=== PATIENT | male | born 1970 | race African-American/Black ===

== ENCOUNTER 2017-04-09 10:55 | Emergency (ER) | payer OTHER ==
[~2017-04-09 10:55] MED LIST: AL-MAG HYDROX-S30 M1 PO; AMLODIPINE BESY10 MG PO; ANIMAL SHAPES1 EAC2 PO; ATENOLOL25 MG PO; B-1100 MG PO; BENTYL10 M1 PO; BENZTROPINE MESY1 MG PO; CARAFATE PO; CARAFATE1 G PO; CARDURA2 MG PO; CATAPRES0.1 M1 PO; CATAPRES0.1 MG PO; CEPACOL SORE T1 EAC3 PO; CLONIDINE HCL0.1 MG PO; COGENTIN1 M1 PO; COGENTIN1 MG PO; COLCHICINE0.6 M1 PO; COLCRYS0.6 M2 PO; DICYCLOMINE HCL10 MG PO; FOLIC ACID1 MG PO; GENTAMICIN SULFA5 ML OU; HALOPERIDOL2 MG PO; HYDROCHLOROTHIA25 MG PO; HYDROCODONE-APA1 T61 PO; HYDROCODONE/APA1 T15 PO; INDOCIN50 MG PO; INDOMETHACIN25 MG PO; K-DUR20 ME1 PO; K-DUR20 ME2 PO; KLOR-CON PO; LIBRIUM PO; LIBRIUM25 M1 PO; LIBRIUM25 MG PO; LISINOPRIL PO; LOPRESSOR PO; MAALOX SUSPENS355 ML PO; MAG-OX 400400 MG PO; MAGNESIUM400 M1 PO; MAGNESIUM400 MG PO; MEDROL DOSEPAK4 MG PO; METOPROLOL TAR25 MG PO; METOPROLOL TART25 MG PO; MOBIC15 MG PO; MULTI VITAMIN1 EACH PO; MULTI-VITAMIN1 EAC1 PO; MULTI-VITAMIN1 TAB PO; NORVASC10 MG PO; OMEPRAZOLE20 M2 PO; PANTOPRAZOLE SO40 MG PO; PHENERGAN25 MG PO; PRILOSEC20 M1 PO; PRILOSEC20 MG PO; PRINIVIL40 MG PO; PROTONIX PO; PROTONIX20 MG PO; REVIA50 MG PO; RISPERDAL1 M1 PO; RISPERIDONE1 MG PO; RISPERIDONE2 MG PO; SENOKOT S1 TA1 PO; SERTRALINE HCL100 M1 PO; SERTRALINE HCL50 M1 PO; TYLENOL325 M1 PO; VITAMIN B-1100 M1 PO; VITAMIN D2000 UNIT PO; ZESTRIL40 MG PO; ZOFRAN ODT4 MG PO; ZYLOPRIM100 MG PO
[2017-04-09 12:06] LABS: BASOPHIL# 0.1 X10e3 (0-0.3); BASOPHIL% 0.5 % (0-2.5); DIFF IND YES; HEMATOCRIT 46.1 % (38.0-50.0); HEMOGLOBIN 14.7 gm/dL (13.0-16.0); LYMPHOCYTE# 2.5 X10e3 (1.0-3.5); LYMPHOCYTE% 13.5 % (17.0-45.0); MEAN CELL VOLUME 77.8 FL (83-96); MEAN CORPUSCULAR HEMOGLOBIN 24.8 PG (28-34); MEAN CORPUSCULAR HGB CONC 31.8 g/dL (30-36); MEAN PLATELET VOLUME 9.7 FL (6.5-11.5); MONOCYTE# 1.1 X10e3 (0-1.0); MONOCYTE% 5.7 % (3.0-12.0); NEUTROPHIL% 80.3 % (40-75); PLATELET COUNT 102 X10e3 (140-420); RED BLOOD COUNT 5.92 X10e (3.90-5.60); RED CELL DISTRIBUTION WIDTH 15.3 % (11.0-15.5); WHITE BLOOD COUNT 18.7 X10e3 (4.0-10.5)
[2017-04-09 12:17] LABS: ALBUMIN SERUM 5.6 g/dL (3.5-5.0); ALCOHOL BLOOD <5 mg/dL (0); ALKALINE PHOSPHATASE 75 U/L (32-92); ALT (SGPT) 63 U/L (10-40); AST (SGOT) 126 U/L (10-42); BILIRUBIN, DIRECT 0.5 mg/dL (0.0-0.2); BILIRUBIN,INDIRECT 2.8 mg/dL (0.0-0.9); BILIRUBIN,TOTAL 3.3 mg/dL (0.2-2.0); BLOOD UREA NITROGEN 45 mg/dL (9-23); BUN/CREATININE RATIO 26.47; CALCIUM SERUM 9.5 mg/dL (8.4-10.2); CARBON DIOXIDE 23 mmol/L (22-31); CHLORIDE 94 mmol/L (100-111); CREATININE SERUM 1.7 mg/dL (0.6-1.4); GLOM FILT RATE Estimated 54.5 mL/min (>60); GLUCOSE FASTING 142 mg/dL (70-110); POTASSIUM 3.5 mmol/L (3.5-5.1); PROTEIN TOTAL SERUM 8.6 g/dL (6.0-8.3); SODIUM 134 mmol/L (135-145)
[2017-04-09 12:39] LABS: AMPHETAMINE NEG (NEG); BARBITURATES NEG (NEG); BENZODIAZEPINES NEG (NEG); COCAINE NEG (NEG); MARIJUANA NEG (NEG); OPIATES NEG (NEG); TRICYCLIC ANTIDEPRESSANTS NEG (NEG); U METHADONE NEG (NEG)
[2017-04-09 13:08] LABS: ANISOCYTOSIS SL; PLATELET ESTIMATE DECREASED (NORMAL)
[2017-04-09 13:14] LABS: PAPPENHEIMER BODIES PRESENT
== END 2017-04-09 13:58 | disposition home or self-care (01) ==
LOC: CED 10:55
PROVIDERS: Emergency Medicine
DX: F43.12 Post-traumatic stress disorder, chronic (principal); F10.239 Alcohol dependence with withdrawal, unspecified; I10 Essential (primary) hypertension; Z79.899 Other long term (current) drug therapy
CPT/HCPCS: 36415; 80048; 80076; 80307; 85025; 99285; G0480

== ENCOUNTER 2017-04-25 15:07 | Inpatient (IN) | payer OTHER ==
[~2017-04-25] VITALS: Ht 175.3 cm; Wt 103.0 kg
--- NOTE | ~2017-04-25 | CO ---
Unit #: [id number] #: [id number] Patient: KADE QUINTANA JR. [id number] [address] [address] [id number] I MR#: [id number] NAME: KADE QUINTANA JR. ROOM: [facility] Age: 46 Sex: M Admission Date: 04/25/2017 : 1970 Attending Physician: Alayna Unger M.D. Primary Care Physician: Daja Brunson M.D. Consultation Date: 04/26/2017 CONSULTATION REPORT REASON FOR CONSULT ICU management. CHIEF COMPLAINT Withdrawal. HISTORY OF PRESENT ILLNESS This is a pleasant, 46-year-old -[place] male with past medical history significant for binge drinking and alcohol withdrawal, who presented to the emergency room for evaluation of alcohol withdrawal symptoms. The patient stated that he had an episode of binge drinking and he attempted to quit many days ago. The patient had some symptoms o alcohol withdrawal as he is aware of them from previous experience. He was not feeling well and was feeling nauseated but he did not vomit. Also, he was feeling some chest discomfort and his heart was racing. Upon presentation to the ER, the patient needed IV Ativan, however, he did not receive any dose since midnight. He is currently feeling better but he is still nauseated. He tolerated his clear liquids fine this morning. PAST MEDICAL HISTORY 1. Hypertension. 2. PTSD. 3. Depression. 4. Alcohol abuse. 5. GERD. 6. Gastrointestinal bleeding with ulcerative esophagitis. 7. Thrombocytopenia. 8. Liver disease. PAST SURGICAL HISTORY 1. Right knee surgery. 2. Right ankle surgery. FAMILY HISTORY Hypertension. ALLERGIES No known drug allergy. HOME MEDICATION 1. Allopurinol. 2. Risperdal. Unit #: [id number] #: [id number] Patient: KADE QUINTANA JR. 3. Folic acid. 4. Catapres. 5. Sertraline. 6. Zofran. 7. Thiamine. 8. Haldol. 9. Metoprolol. REVIEW OF SYSTEMS A 12-point review of systems was obtained and was negative except for what was mentioned in the HPI. PHYSICAL EXAMINATION GENERAL APPEARANCE: The patient currently is calm and following commands. No acute distress. VITAL SIGNS: Temperature 98.4. Respiratory rate 16. O2 saturation 96 on room air. HEENT: Head: Atraumatic, normocephalic. PERRLA. EOMI. NECK: Supple. No JVD. No lymphadenopathy. CHEST: Clear to auscultation bilaterally. HEART: S1, S2. No murmur, gallops or rubs. ABDOMEN: Soft, nontender. Bowel sounds positive. No hepatosplenomegaly. EXTREMITIES: No edema or cyanosis. SKIN: No rashes. CENTRAL NERVOUS SYSTEM: Awake, alert, oriented x3. No focal motor/sensory deficits. DIAGNOSTIC STUDIES LABORATORY: Creatinine 1.0. CO2 28. Calcium 8.6. WBC count 8.6, hemoglobin 11.0. ASSESSMENT 1. Alcohol withdrawal. 2. Hypertension. 3. Anemia. 4. Thrombocytopenia. 5. Morbid obesity. PLAN 1. We will continue patient on CIWA protocol. 2. IV hydration but may discontinue as soon as he tolerates solid food. 3. He is currently on clear liquids but will advance as tolerated. 4. We will put parameters on his blood pressure as his blood pressure is borderline right now. 5. DVT prophylaxis but we will hold if platelet level is less than 40,000. 6. Out of bed to chair and ambulation. 7. I would like to thank Dr. Guajardo for allowing me to be part of this patient's care. Dictated by... Pam Torres TD: 04/26/2017 13:01 JOB #: [id number] Unit #: [id number] #: [id number] Patient: KADE QUINTANA JR. CONSULTATION REPORT Page 1 of 1 X GONZALES GOLDEN MD CONSULTATION REPORT
--- NOTE | ~2017-04-25 | DS ---
Unit #: [id number] #: [id number] Patient: KADE QUINTANA JR. [id number] [address] [address] [id number] I MR#: [id number] NAME: KADE QUINTANA JR. ROOM: [facility] Age: 46 Sex: M Admission Date: 04/25/2017 : 1970 Discharge Date: 04/27/2017 Attending Physician: Alayna Unger M.D. Primary Care Physician: Daja Brunson M.D. DISCHARGE SUMMARY PRIMARY CARE PHYSICIAN [facility]. PRINCIPAL DIAGNOSES 1. Acute alcohol withdrawal without seizure. 2. Hypokalemia. 3. Metabolic acidosis likely a combination of alcoholic ketosis and starvation ketosis. 4. Chronic thrombocytopenia secondary to alcohol abuse, discharge platelet count 67,000. 5. Hypertension. 6. Posttraumatic stress disorder. 7. Depression. 8. Chronic alcohol abuse. 9. History of ulcerative esophagitis. 10. History of alcohol-induced liver disease, currently stable. 11. Reactive leukocytosis. 12. Gout. M[employer] Dr. Veras, Pulmonology. PROCEDURE Chest x-ray on April 25, 2017, with no acute findings. CLINICAL HISTORY AND HOSPITAL COURSE Mr. Quintana is a nice 46-year-old male who presented to the emergency department in alcohol withdrawal. He was attempting to quit drinking on his own but felt quite tremulous and subsequently presented to the ER. Workup in the emergency department revealed a bicarbonate level of 16 with an anion gap of 25. His white blood cell count was also elevated at 17. Workup was otherwise unremarkable, and he was subsequently admitted. Patient was initially admitted to the ICU given concern for significant withdrawal. However, on scheduled Librium, he did not require any p.r.n. Ativan and has had minimal withdrawal symptoms. His tremulousness has resolved, and he has not had any tachycardia. He was subsequently transferred from the ICU to the regular medical floor. Today, patient is stable. He is tolerating diet, he has been up walking, and denies any symptoms of withdrawal. I am going to give him a short tapering dose of Librium as an outpatient. Unit #: [id number] #: [id number] Patient: LILIAN,KADE JULIUS JR. In regards to patient's leukocytosis, this resolved spontaneously without any infectious cause noted. No antibiotics given on discharge. Patient is otherwise again stable and will be discharged home. DISCHARGE CONDITION Stable. DISCHARGE STATUS Discharge to home. DISCHARGE MEDICATIONS 1. Magnesium oxide 400 mg p.o. daily. 2. Zoloft 100 mg daily. 3. Zofran oral disintegrating tablets 4 mg t.i.d. p.r.n. for nausea and vomiting. 4. Phenergan 25 mg p.o. q.4 hours p.r.n. for nausea. 5. Bentyl 10 mg p.o. t.i.d. p.r.n. for abdominal cramping. 6. Haldol 5 mg b.i.d. 7. Risperdal 3 mg at bedtime. 8. Librium 25 mg p.o. b.i.d. for 1 day, then 25 mg daily for 1 day, then discontinue. 9. Metoprolol tartrate 25 mg b.i.d. 10. Clonidine 0.1 mg p.o. t.i.d. 11. Allopurinol 200 mg daily. 12. Daily multivitamin. 13. Protonix 40 mg b.i.d. 14. Folic acid 1 mg daily. 15. Thiamine 100 mg daily. DISCHARGE INSTRUCTIONS 1. Patient is instructed to follow a heart-healthy diet. 2. He can increase his activity as tolerated. 3. Refrain from any further alcohol use. FOLLOWUP Patient will follow up with his primary care physician at [facility] early next week. Dictated by... Alayna Unger M.D. LAVERNE/diane TD: 04/30/2017 14:47 JOB #: [id number] DISCHARGE SUMMARY Page 1 of 1 X Alayna Unger MD X DISCHARGE SUMMARY
--- NOTE | ~2017-04-25 | EKG ---
PATIENT: KADE QUINTANA UNIT #: [id number] Ventricular Rate: 118 BPM Atrial Rate: 118 BPM P-R Interval: 216 ms QRS Duration: 82 ms Q-T Interval: 254 ms QTC Calculation(Bezet): 356 ms P [place]: 117 degrees Calculated R [place]: 32 degrees Calculated T [place]: 2 degrees Diagnosis Line: Sinus tachycardia with 1st degree A-V block Diagnosis Line: Nonspecific T wave abnormality Diagnosis Line: Abnormal ECG Diagnosis Line: No previous ECGs available Diagnosis Line: Confirmed by CAITLYN GRAHAM MD ([id number]) on Diagnosis Line: 04/26/2017 9:04:19 AM INTERPRETING MD: SANTOS BAKER
--- NOTE | ~2017-04-25 | CR72 ---
[facility] A Service of [facility] RADIOLOGY TEXT RESULTS PATIENT: KADE QUINTANA JR. LOCATION: [address] : [birth year] UNIT #: [id number] AGE: [address]: Talat Guajardo MD SEX: M ORDER DR: [id number] [facility] [address] [facility] [place], [place] [address] [id number] MR#: [id number] Acc #: [id number] NAME: KADE QUINTANA JR. : 1970 SEX: M STUDY DATE/TIME: 04/25/2017 16:23 UNIT: [facility] ROOM: [id number] STUDY DESCRIPTION: CR Chest Single View Portable Attending Physician: Talat Guajardo M.D. Ordering Physician: Pilo Salinas M.D. Primary Care Physician: Daja Brunson M.D. MEDICAL IMAGING REPORT This report is preliminary unless electronic signature is present EXAM Portable chest INDICATIONS Shortness of breath chest pain and vomiting for 3 days COMPARISON 11/21/2016 FINDINGS The lungs are well expanded and clear. The heart size is normal. Visualized osseous structures are unremarkable. IMPRESSION No active disease Dictated by... Arun Richmond M.D. THIS IS AN ELECTRONICALLY VERIFIED REPORT Arun Richmond M.D. at 04/26/2017 7:12 AM JUAN/catalina TD: 04/25/2017 19:20 JOB #: [id number] MEDICAL IMAGING REPORT Page 1 of 1 COPY
--- NOTE | ~2017-04-25 | HP ---
Unit #: [id number] #: [id number] Patient: KADE QUINTANA JR. [id number] [address] [place], [place] [address] [id number] I MR#: [id number] NAME: KADE QUINTANA JR. ROOM: [facility] Age: 46 Sex: M Admission Date: 04/25/2017 : 1970 Attending Physician: Talat Guajardo M.D. Primary Care Physician: Daja Brunson M.D. HISTORY AND PHYSICAL CHIEF COMPLAINT Alcohol withdrawal HISTORY OF PRESENT ILLNESS The patient is a 46-year-old male with history of binge drinking and alcohol withdrawal, presents to [facility] Emergency Department for the same. He states that he had an episode of binge drinking and attempted to quit three days ago. He went three days with no alcohol and suddenly began to feel ill. He had a drink prior to coming to the hospital. In the emergency department he is noted to be nauseas and with vomiting. He states that he feels he is having palpitations, but is answering questions appropriately, denies any confusion and certainly does not appear confused during this interview. PAST MEDICAL HISTORY 1. Hypertension. 2. Posttraumatic stress disorder. 3. Depression. 4. Alcohol abuse. 5. History of gastroesophageal reflux disease. 6. Gastrointestinal bleed with ulcerative esophagitis. 7. Chronic thrombocytopenia secondary to alcohol abuse. 8. Alcohol induced liver disease. 9. Right knee surgery. 10. Right ankle surgery. HOME MEDICATIONS The patient takes 1. Multivitamin daily 2. Allopurinol 200 mg p.o. daily 3. Cetirizine 100 mg p.o. daily 4. Risperdal 3 mg daily 5. Folic acid daily 6. Catapres 0.2 mg p.o. every 8 hours 7. Sertraline 100 mg p.o. at bedtime 8. Zofran 4 mg p.o. t.i.d. 9. Thiamine 100 mg p.o. daily 10. Haldol 5 mg p.o. b.i.d. 11. Metoprolol tartrate 50 mg p.o. b.i.d. 12. Magnesium oxide 400 mg p.o. every 8 hours ALLERGIES No known drug allergies Unit #: [id number] #: [id number] Patient: KADE QUINTANA JR. REVIEW OF SYSTEMS Ten-point review of systems obtained and negative except as per history of present illness with the addition of anxiety and depression. PHYSICAL EXAMINATION VITAL SIGNS: Temperature 98.9, pulse 122, blood pressure 153/110. GENERAL: A 46-year-old male in no acute distress, appears stated age. HEENT: Pupils equally round. Extraocular movements are intact. Mucous membranes dry. NECK: Supple. No jugular venous distension. No lymphadenopathy. CARDIAC: Regular rate and rhythm. No murmurs, gallops or rubs. LUNGS: Clear to auscultation bilaterally. ABDOMEN: Nontender, nondistended. Positive bowel sounds. EXTREMITIES: No clubbing, cyanosis or edema. Warm and dry. PSYCHIATRIC: Alert and oriented x3. Affect is appropriate. NEUROLOGIC: Cranial nerves II through XII are intact grossly. The patient moves all extremities equal and with purpose. SKIN: No rash, bruise, or ulcer. MUSCULOSKELETAL: No muscle or joint pain. No muscle or joint swelling. DIAGNOSIS DATA Laboratory: Bicarbonate is 16, anion gap is 25. White count is 17, hemoglobin 12.8. Imaging: Chest x-ray shows no active disease. ASSESSEMENT AND PLAN 1. Alcohol withdrawal. The patient has been started on CIWA protocol and scheduled Librium. 2. Hypertension. Continue home medications. 3. Posttraumatic stress disorder and depression. Continue home medications. 4. Prophylaxis: The patient has been started on Lovenox. Dictated by Talat Guajardo M.D. CAM/bill TD: 04/25/2017 21:25 JOB #: [id number] HISTORY AND PHYSICAL Page 1 of 1 X Talat Guajardo MD HISTORY AND PHYSICAL
[2017-04-25 16:43] LABS: BASOPHIL# 0.1 X10e3 (0-0.3); BASOPHIL% 0.3 % (0-2.5); HEMATOCRIT 39.9 % (38.0-50.0); HEMOGLOBIN 12.8 gm/dL (13.0-16.0); LYMPHOCYTE# 1.8 X10e3 (1.0-3.5); LYMPHOCYTE% 10.4 % (17.0-45.0); MEAN CELL VOLUME 79.3 FL (83-96); MEAN CORPUSCULAR HEMOGLOBIN 25.5 PG (28-34); MEAN CORPUSCULAR HGB CONC 32.1 g/dL (30-36); MEAN PLATELET VOLUME 8.9 FL (6.5-11.5); MONOCYTE# 1.3 X10e3 (0-1.0); MONOCYTE% 7.4 % (3.0-12.0); NEUTROPHIL# 14.2 X10e3 (1.5-7.1); NEUTROPHIL% 81.9 % (40-75); PLATELET COUNT 149 X10e3 (140-420); RED BLOOD COUNT 5.03 X10e (3.90-5.60); RED CELL DISTRIBUTION WIDTH 16.3 % (11.0-15.5); WHITE BLOOD COUNT 17.3 X10e3 (4.0-10.5)
[2017-04-25 16:46] LABS: DIFF IND YES
[2017-04-25 16:53] LABS: INR 1.1; PARTIAL THROMBOPLASTIN TIME 26.9 SECONDS (23.5-31.3); PROTHROMBIN TIME (PATIENT) 11.4 SECONDS (10.0-11.7)
[2017-04-25 17:23] LABS: ANISOCYTOSIS MOD; MICROCYTOSIS SL; PLATELET ESTIMATE NORMAL (NORMAL); POIKILOCYTOSIS SL
[2017-04-25 17:39] LABS: POC - TROPONIN <0.05 ng/mL (<=0.05)
[2017-04-25 18:00] LABS: ALBUMIN SERUM 5.2 g/dL (3.5-5.0); BILIRUBIN, DIRECT 0.6 mg/dL (0.0-0.2); BILIRUBIN,INDIRECT 3.3 mg/dL (0.0-0.9); BILIRUBIN,TOTAL 3.9 mg/dL (0.2-2.0); CALCIUM SERUM 10.1 mg/dL (8.4-10.2); CREATININE SERUM 1.2 mg/dL (0.6-1.4); POTASSIUM 3.6 mmol/L (3.5-5.1); PROTEIN TOTAL SERUM 8.7 g/dL (6.0-8.3)
[2017-04-25 18:18] LABS: POC - CKMB 4.2 ng/mL (0.0-7.9); POC - TROPONIN <0.05 ng/mL (<=0.05)
[2017-04-26 05:25] LABS: BASOPHIL% 0.5 % (0-2.5); EOSINOPHIL% 0.2 % (0.0-7.0); HEMATOCRIT 34.8 % (38.0-50.0); LYMPHOCYTE# 2.5 X10e3 (1.0-3.5); LYMPHOCYTE% 28.9 % (17.0-45.0); MEAN CORPUSCULAR HEMOGLOBIN 25.6 PG (28-34); MEAN CORPUSCULAR HGB CONC 31.6 g/dL (30-36); MEAN PLATELET VOLUME 9.6 FL (6.5-11.5); MONOCYTE# 0.6 X10e3 (0-1.0); MONOCYTE% 7.5 % (3.0-12.0); NEUTROPHIL# 5.4 X10e3 (1.5-7.1); NEUTROPHIL% 62.9 % (40-75); RED CELL DISTRIBUTION WIDTH 17.1 % (11.0-15.5)
[2017-04-26 07:06] LABS: WHITE BLOOD COUNT 8.6 X10e3 (4.0-10.5)
[2017-04-26 07:11] LABS: DIFF IND YES; PLATELET COUNT 84 X10e3 (140-420)
[2017-04-26 07:13] LABS: CALCIUM SERUM 8.6 mg/dL (8.4-10.2); GLOM FILT RATE Estimated 103.4 mL/min (>60); POTASSIUM 3.3 mmol/L (3.5-5.1)
[2017-04-26 07:14] LABS: ANISOCYTOSIS SL; MICROCYTOSIS SL; PLATELET ESTIMATE DECREASED (NORMAL)
[2017-04-26 07:15] LABS: HYPOCHROMIA SL
[2017-04-26 07:17] LABS: STOMATOCYTE PRESENT
[2017-04-26 13:59] LABS: IRON SERUM 257 ug/dL (45-182); TOTAL IRON BINDING CAPACITY 298 ug/dL (252-460); TRANSFERRIN 213 mg/dL (180-329); TRANSFERRIN SATURATION 86 % (20-50)
[2017-04-26 20:45] LABS: URINE SOURCE CLEAN CATCH
[2017-04-26 20:51] LABS: URINE APPEARANCE CLEAR; URINE BILIRUBIN NEG (NEG); URINE BLOOD NEG (NEG); URINE COLOR YELLOW; URINE GLUCOSE NEG (NEG); URINE KETONE TRACE (NEG); URINE LEUKOCYTE ESTERASE NEG (NEG); URINE NITRATE NEG (NEG); URINE PH 5.5 (5-8); URINE PROTEIN NEG (NEG); URINE SPECIFIC GRAVITY 1.016 (1.003-1.035); URINE UROBILINOGEN 0.2 MG/DL (NEG)
[2017-04-27 05:59] LABS: BASOPHIL% 0.4 % (0-2.5); EOSINOPHIL# 0.1 X10e3 (0-0.7); EOSINOPHIL% 1.2 % (0.0-7.0); HEMATOCRIT 35.2 % (38.0-50.0); LYMPHOCYTE# 2.7 X10e3 (1.0-3.5); MEAN CELL VOLUME 81.8 FL (83-96); MEAN CORPUSCULAR HEMOGLOBIN 25.5 PG (28-34); MEAN CORPUSCULAR HGB CONC 31.2 g/dL (30-36); MEAN PLATELET VOLUME 9.3 FL (6.5-11.5); MONOCYTE# 0.5 X10e3 (0-1.0); MONOCYTE% 7.1 % (3.0-12.0); NEUTROPHIL# 3.6 X10e3 (1.5-7.1); NEUTROPHIL% 52.3 % (40-75); PLATELET COUNT 67 X10e3 (140-420); RED CELL DISTRIBUTION WIDTH 17.1 % (11.0-15.5); WHITE BLOOD COUNT 6.9 X10e3 (4.0-10.5)
[2017-04-27 06:03] LABS: DIFF IND NO
[2017-04-27 06:10] LABS: ALBUMIN SERUM 3.8 g/dL (3.5-5.0); BILIRUBIN,TOTAL 1.5 mg/dL (0.2-2.0); CALCIUM SERUM 8.9 mg/dL (8.4-10.2); CREATININE SERUM 0.8 mg/dL (0.6-1.4); GLOM FILT RATE Estimated 123.3 mL/min (>60); POTASSIUM 3.2 mmol/L (3.5-5.1); PROTEIN TOTAL SERUM 6.5 g/dL (6.0-8.3)
[2017-04-27] MEDS ORDERED: ZOFRAN PO (18:45)
[2017-04-27] MEDS ORDERED: LOPRESSOR PO (18:48)
[2017-04-27] MEDS ORDERED: LIBRIUM PO (18:51)
== END 2017-04-27 19:15 | disposition home or self-care (01) | DRG 897 ==
LOC: CED 15:07 → CEDOF 19:00 → CED 19:19 → CEDOF 19:19 → CICCU3 20:25 → CEDOF 20:25 → CICCU3 04-26 07:49 → C3A PCU 04-26 13:13
PROVIDERS: Emergency Medicine; Internal Medicine
DX: F10.231 Alcohol dependence with withdrawal delirium (principal); E87.2 Acidosis; D69.59 Other secondary thrombocytopenia; I10 Essential (primary) hypertension; F43.10 Post-traumatic stress disorder, unspecified; F32.9 Major depressive disorder, single episode, unspecified; K21.9 Gastro-esophageal reflux disease without esophagitis; E66.01 Morbid (severe) obesity due to excess calories; D64.9 Anemia, unspecified; E87.6 Hypokalemia; K70.9 Alcoholic liver disease, unspecified; D72.828 Other elevated white blood cell count; M10.9 Gout, unspecified; Z68.29 Body mass index [BMI] 29.0-29.9, adult
CPT/HCPCS: 36415; 71010; 80048; 80053; 80076; 81003; 82010; 82553; 82607; 83540; 83550; 83690; 84484; 85025; 85610; 85730; 93005; 96361; 96374; 96375; 99285; C9113; G0480; J1650; J2060; J2405; J3411; J7042

== ENCOUNTER 2017-05-28 13:51 | Emergency (ER) | payer OTHER ==
[~2017-05-28] VITALS: Ht 175.3 cm; Wt 99.8 kg
[~2017-05-28 13:51] MED LIST changes: +ZOFRAN PO
[2017-05-28 15:48] LABS: URINE SOURCE CLEAN CATCH
[2017-05-28 15:59] LABS: URINE APPEARANCE CLOUDY; URINE BLOOD NEG (NEG); URINE COLOR DK YELLOW; URINE GLUCOSE NEG (NEG); URINE KETONE 2+ (NEG); URINE LEUKOCYTE ESTERASE NEG (NEG); URINE NITRATE NEG (NEG); URINE PROTEIN 1+ (NEG); URINE SPECIFIC GRAVITY 1.029 (1.003-1.035)
[2017-05-28 16:02] LABS: URINE BACTERIA AUWI NEG (NEGATIVE); URINE SQUAMOUS EPITHELIAL CELL OCC /[HPF]; UWBCS1 AUWI 0-2 (0-5)
[2017-05-28 16:02] LABS: BASOPHIL# 0.1 X10e3 (0-0.3); BASOPHIL% 0.3 % (0-2.5); HEMATOCRIT 39.9 % (38.0-50.0); HEMOGLOBIN 13.2 gm/dL (13.0-16.0); LYMPHOCYTE# 0.9 X10e3 (1.0-3.5); LYMPHOCYTE% 5.5 % (17.0-45.0); MEAN CELL VOLUME 77.5 FL (83-96); MEAN CORPUSCULAR HEMOGLOBIN 25.6 PG (28-34); MEAN CORPUSCULAR HGB CONC 33.1 g/dL (30-36); MEAN PLATELET VOLUME 10.1 FL (6.5-11.5); MONOCYTE# 1.2 X10e3 (0-1.0); MONOCYTE% 7.1 % (3.0-12.0); NEUTROPHIL# 14.8 X10e3 (1.5-7.1); NEUTROPHIL% 87.1 % (40-75); RED BLOOD COUNT 5.16 X10e (3.90-5.60); RED CELL DISTRIBUTION WIDTH 17.1 % (11.0-15.5)
[2017-05-28 16:17] LABS: DIFF IND YES; PLATELET COUNT 64 X10e3 (140-420)
[2017-05-28 16:19] LABS: CULTURE INDICATED? NO; URINE BILIRUBIN NEG (NEG)
[2017-05-28 16:21] LABS: ALBUMIN SERUM 5.5 g/dL (3.5-5.0); ALKALINE PHOSPHATASE 72 U/L (32-92); ALT (SGPT) 33 U/L (10-40); AST (SGOT) 58 U/L (10-42); BILIRUBIN, DIRECT 0.5 mg/dL (0.0-0.2); BILIRUBIN,INDIRECT 1.8 mg/dL (0.0-0.9); BILIRUBIN,TOTAL 2.3 mg/dL (0.2-2.0); BLOOD UREA NITROGEN 22 mg/dL (9-23); BUN/CREATININE RATIO 15.71; CALCIUM SERUM 10.2 mg/dL (8.4-10.2); CARBON DIOXIDE 19 mmol/L (22-31); CHLORIDE 97 mmol/L (100-111); CREATININE SERUM 1.4 mg/dL (0.6-1.4); GLOM FILT RATE Estimated 68.9 mL/min (>60); GLUCOSE FASTING 175 mg/dL (70-110); LIPASE 20 U/L (22-51); POTASSIUM 4.1 mmol/L (3.5-5.1); PROTEIN TOTAL SERUM 8.8 g/dL (6.0-8.3); SODIUM 141 mmol/L (135-145)
[2017-05-28 16:22] LABS: URINE GRANULAR CAST 0-2 /[HPF]
[2017-05-28 16:25] LABS: ALCOHOL BLOOD <5 mg/dL ([, 0])
[2017-05-28 16:26] LABS: HYPOCHROMIA SL; PLATELET ESTIMATE DECREASED (NORMAL)
[2017-05-28 16:27] LABS: ANISOCYTOSIS SL; MICROCYTOSIS SL
== END 2017-05-28 19:00 | disposition home or self-care (01) ==
LOC: CED 13:51
DX: F10.239 Alcohol dependence with withdrawal, unspecified (principal); D69.6 Thrombocytopenia, unspecified; I10 Essential (primary) hypertension; Z79.899 Other long term (current) drug therapy
CPT/HCPCS: 36415; 80048; 80076; 81003; 83690; 85025; 96365; 96375; 99285; G0480; J2060; J2405; J2550; J3411; J3475